=== PATIENT | female | born 1950 | race Caucasian/White ===

== ENCOUNTER → 2018-06-17 | Outpatient (CLI) | payer OTHER ==
[~2018-06-17] MED LIST: AVAPRO 150 MG150 M1 PO; CHOLESTROL; DIAZEPAM 2MG TAB2 MG PO; HIGH BP; NORCO 5-325 TA1 EAC1 PO; TEKTURNA HCT 11 EACH; THYROID MED; ULTRAM 50MG TAB50 MG PO
== END ==
LOC: M.RAD 05-26 08:15
DX: Z12.31 Encounter for screening mammogram for malignant neoplasm of breast (principal)

== ENCOUNTER → 2019-02-25 | Outpatient (CLI) | payer OTHER | LOC: M.RAD 12:12 | DX: R91.8 Other nonspecific abnormal finding of lung field (principal) ==

== ENCOUNTER → 2019-04-04 | Outpatient (CLI) | payer OTHER | LOC: M.RAD 13:51 | DX: J18.9 Pneumonia, unspecified organism (principal) ==

== ENCOUNTER → 2019-09-09 | Outpatient (CLI) | payer OTHER | LOC: M.RAD 14:05 | DX: R06.2 Wheezing (principal) ==

== ENCOUNTER 2019-10-06 07:09 | Observation (INO) | payer OTHER ==
[~2019-10-06] VITALS: Ht 149.9 cm; Wt 76.7 kg
[2019-10-06 07:13] VITALS: BP 139/80
[2019-10-06] MEDS ORDERED: MICROZIDE12.5 MG PO (07:21)
[2019-10-06 08:01] LABS: ABSOLUTE EOSINOPHILS 0.3 thou/uL (0.0-0.7); ABSOLUTE LYMPHOCYTES 3.8 thou/uL (0.8-5.3); ABSOLUTE MONOCYTES 0.6 thou/uL (0.0-1.2); ABSOLUTE NEUTROPHILS 4.1 thou/uL (1.6-8.1); BASOPHILS 0.4 %; EOSINOPHILS 3.2 %; HEMATOCRIT 41.9 % (37.0-47.0); HEMOGLOBIN 14.5 gm/dL (12.0-15.0); LYMPHOCYTES 43.2 %; MCH 29.7 pg (26.0-34.0); MCHC 34.7 g/dL (28.0-37.0); MCV 85.5 fL (80.0-100.0); MONOCYTES 6.6 %; MPV 8.2 fl. (7.2-11.1); NUCLEATED RBCS 0 /100WBC; PLATELET COUNT* 300 thou/uL (150-400); POLYS 46.6 %; RDW-CV 13.5 % (10.5-14.5); WBC 8.7 thou/uL (4.0-11.0)
[2019-10-06 08:09] LABS: CALCIUM 9.9 mg/dL (8.5-10.1); CREATININE 0.9 mg/dL (0.6-1.3); POTASSIUM 3.4 mmol/L (3.5-5.1)
[2019-10-06 08:19] LABS: ALBUMIN 4.3 g/dL (3.4-5.0); TOTAL BILIRUBIN 1.3 mg/dL (<0.1-1.0); TOTAL PROTEIN 8.2 g/dL (6.4-8.2)
--- NOTE | 2019-10-06 10:33 | EKG ---
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 : 1950 Requested By: Jaun Carlos Jiang Order Number: [id number] MD: Waldemar Licea Measurements Intervals [place] Rate: 86 P: 15 [place]: 168 QRS: 39 QRSD: 98 T: 46 QT: 393 QTc: 470 Interpretive Statements Sinus rhythm Low voltage, precordial leads Borderline T abnormalities, anterior leads Compared to ECG 04/27/2010 17:50:02 Low QRS voltage now present T-wave abnormality still present Electronically Signed On 10-06-2019 10:32:52 [employer] by Waldemar Licea [email or web address] <ELECTRONICALLY SIGNED> By: Waldemar Licae MD, FACC 10/06/19 1032 0722 0722 Waldemar Licea MD, [facility] /EPI
[2019-10-06 11:03] VITALS: BP 132/74
--- NOTE | 2019-10-06 11:39 | 2DMMODE ---
[place] [address] 2 D/M-MODE ECHOCARDIOGRAM Name: NAYE MATHEW Room: [place] [address] ADM [place] [facility]#: [id number] Admission: 10/06/19 Attend Phys: Binta Sow, Discharge: Date of : 48 Date of Service: 10/06/19 1139 Report #: [id number] THIS REPORT FOR: //name// APPROVED REPORT Study performed: 10/06/2019 09:27:51 EXAM: Comprehensive 2D, Doppler, and color-flow Echocardiogram Patient Location: In-Patient Room #: ER Status: routine BSA: 1.65 HR: 64 bpm BP: 139/80 mmHg Rhythm: NSR Other Information Technically limited study due to NO GOOD APICAL WINDOW. Indications Chest Pain 2D Dimensions IVSd: 8.31 (7-11mm) LVOT Diam: 20.31 (18-24mm) LVDd: 43.85 mm PWd: 8.37 (7-11mm) Ascending Ao: 30.37 (22-36mm) LVDs: 24.43 (25-40mm) Aortic Root: 30.65 mm Pulmonary Valve PV Peak Kavin.: 0.84 m/s PV Peak Gr.: 2.82 mmHg Left Ventricle The left ventricle is normal size. There is normal LV segmental wall motion. There is normal left ventricular wall thickness. Left ventricular systolic function is normal. LVEF is 60-65%. Transmitral Doppler flow pattern suggests impaired LV relaxation. Right Ventricle The right ventricle is normal size. The right ventricular systolic function is normal. Atria The left atrium size is normal. The right atrium size is [facility] [address] [place] [address] 2 D/M-MODE ECHOCARDIOGRAM Name: NAYE MATHEW Room: [address] IN [facility]#: [id number] Admission: 10/06/19 Attend Phys: Binta Sow, Discharge: Date of : 48 Date of Service: 10/06/19 1139 Report #: [id number] normal. Aortic Valve The aortic valve is normal in structure. No aortic regurgitation is present. There is no aortic valvular stenosis. Mitral Valve The mitral valve is normal in structure. There is no mitral valve regurgitation noted. No evidence of mitral valve stenosis. Tricuspid Valve The tricuspid valve is normal in structure. Unable to assess PA pressure. Trace tricuspid regurgitation. Pulmonic Valve The pulmonary valve is normal in structure. There is no pulmonic valvular regurgitation. Great Vessels The aortic root is normal in size. IVC is normal in size and collapses >50% with inspiration. Pericardium There is no pericardial effusion. <Conclusion> The left ventricle is normal size. There is normal left ventricular wall thickness. Left ventricular systolic function is normal. LVEF is 60-65%. Transmitral Doppler flow pattern suggests impaired LV relaxation. Unable to assess PA pressure. Trace tricuspid regurgitation. IVC is normal in size and collapses >50% with inspiration. <ELECTRONICALLY SIGNED> By: Juan Daniel Joy MD, FACC 10/06/19 1139 1139 1139 Juan Daniel Joy MD, FACC /INF
[2019-10-06 12:00] VITALS: BP 140/84
[2019-10-06] MEDS ORDERED: KLONOPIN0.5 MG PO (12:11)
[2019-10-06 16:00] VITALS: BP 110/69
[2019-10-06 20:00] VITALS: BP 117/67
[2019-10-07 00:16] VITALS: BP 93/51
[2019-10-07 04:00] VITALS: BP 139/77
[2019-10-07 07:55] VITALS: BP 116/79
[2019-10-07] MEDS ORDERED: PANTOPRAZOLE SO40 M1 PO (10:21)
[2019-10-07 10:41] VITALS: BP 116/79
[2019-10-07 10:55] VITALS: BP 116/79
== END 2019-10-07 12:52 | disposition home or self-care (01) ==
LOC: M.ERS 07:09 → M.2W 08:35 → M.TBA-ER 08:35 → M.2W 11:16
PROVIDERS: Emergency Medicine Emergency Medical Services; ADMIT Internal Medicine
DX: R07.89 Other chest pain (principal); K21.9 Gastro-esophageal reflux disease without esophagitis; F41.9 Anxiety disorder, unspecified; I10 Essential (primary) hypertension; R79.1 Abnormal coagulation profile; Z79.899 Other long term (current) drug therapy

== ENCOUNTER → 2019-11-15 | Outpatient (CLI) | payer OTHER ==
[~2019-11-15] MED LIST changes: +KLONOPIN0.5 MG PO; +MICROZIDE12.5 MG PO; +PANTOPRAZOLE SO40 M1 PO
== END ==
LOC: M.RAD 10:49
DX: R07.89 Other chest pain (principal)

== ENCOUNTER → 2020-03-06 | Outpatient (CLI) | payer OTHER | LOC: M.RAD 11:26 | DX: R91.1 Solitary pulmonary nodule (principal); J98.4 Other disorders of lung; M25.78 Osteophyte, vertebrae ==

== ENCOUNTER → 2020-03-07 | Outpatient (CLI) | payer OTHER | LOC: M.CT 14:29 | DX: R91.8 Other nonspecific abnormal finding of lung field (principal); J84.10 Pulmonary fibrosis, unspecified; J47.9 Bronchiectasis, uncomplicated; J98.4 Other disorders of lung ==

== ENCOUNTER → 2020-04-24 | Outpatient (CLI) | payer OTHER | LOC: M.RAD 02-28 11:11 | PROVIDERS: ATTEND Family Medicine | DX: Z12.31 Encounter for screening mammogram for malignant neoplasm of breast (principal); M85.88 Other specified disorders of bone density and structure, other site; R05 Cough ==

== ENCOUNTER → 2020-11-20 | Outpatient (CLI) | payer OTHER | LOC: M.CT 08:48 | PROVIDERS: ATTEND Internal Medicine Interventional Cardiology | DX: Z13.6 Encounter for screening for cardiovascular disorders (principal) ==